=== PATIENT | male | born 1965 | race Caucasian/White ===

== ENCOUNTER 2017-01-03 12:50 | Emergency (ER) | payer OTHER | END 2017-01-03 14:12 | disposition home or self-care (01) | LOC: ED 12:50 | DX: K04.7 Periapical abscess without sinus (principal); I25.2 Old myocardial infarction; I10 Essential (primary) hypertension; J44.9 Chronic obstructive pulmonary disease, unspecified; F17.210 Nicotine dependence, cigarettes, uncomplicated; Z91.19 Patient's noncompliance with other medical treatment and regimen; Z79.899 Other long term (current) drug therapy ==